=== PATIENT | male | born 1965 | race Two or more races ===

== ENCOUNTER 2016-08-28 21:21 | Emergency (ER) | payer BC ==
[~2016-08-28] VITALS: Wt 96.0 kg
[~2016-08-28 21:21] MED LIST: [UNRECOGNIZED DRUG - REMARK]
[2016-08-28] MEDS ORDERED: ONDANSETRON (ODT) 4 MG TAB ODT STA (23:21)
[2016-08-28] MEDS ORDERED: NAPR-260 PO (23:23)
[2016-08-28] MEDS ORDERED: SULF1TAB31 PO (23:23)
[2016-08-28] MEDS ORDERED: HYDR-906 PO (23:23)
[2016-08-28] MEDS ORDERED: MED4DP PO (23:23)
[2016-08-28] MEDS ORDERED: predniSONE 20 MG TAB PO ONE (23:30)
[2016-08-28] MEDS ORDERED: IBUPROFEN 600 MG TAB PO ONE (23:30)
[2016-08-28] MEDS ORDERED: HYDROCODONE/APAP (5/325) TAB PO ONE (23:30)
--- NOTE | 2016-08-29 00:13 | ERD ---
ER Documentation Chief Complaint Date/Time DATE: 08/29/16 TIME: 00:10 Chief Complaint palpable mass on the right side of the jaw HPI This patient is a 51-year-old male with past medical history of sleep apnea and hypertension presenting to the emergency department for left lower jaw pain with facial swelling as well as bilateral ear pain which began 2 days ago. Additionally the patient states he has had mild shortness of breath worse in the evening due to his sleep apnea. The facial pain and swelling symptoms are constant. He reports aching pain. The patient is taken no medication for relief of symptoms. The patient did go to urgent care yesterday for the facial swelling and was prescribed cephalexin which he took yesterday and today. The patient smokes half a pack of cigarettes per day. He denies fevers or other symptoms at this time. ROS All systems reviewed and are negative except as per history of present illness. Medications Home Meds Active Scripts Methylprednisolone* (Medrol* DOSE PACK) 4 Mg/Dose-Pack Tab.ds.pk, 4 MG PO . DIRECTED, #1 PACKET Prov:SVEN TRAMMELL PA-C 08/28/16 Naproxen* (Naprosyn*) 500 Mg Tablet, 500 MG PO BID Y for PAIN AND/OR INFLAMMATION, #20 TAB Prov:SVEN TRAMMELL PA-C 08/28/16 Hydrocodone/Acetaminophen (Branson 5-325 Tablet) 1 Each Tablet, 1 TAB PO Q6H Y for PAIN, #7 TAB Prov:SVEN TRAMMELL PA-C 08/28/16 Sulfamethoxazole/Trimethoprim* (Bactrim Ds* Tablet) 1 Each Tablet, 1 TAB PO BID , #14 TAB Prov:SVEN TRAMMELL PA-C 08/28/16 Reported Medications [bood pressure med] No Conflict Check 12/27/13 Allergies Allergies: Coded Allergies: No Known Drug Allergy (Verified Allergy, Mild, 04/23/14) PMhx/Soc History of Surgery: Yes Hx Neurological Disorder: No Hx Respiratory Disorders: No Hx Psychiatric Problems: No Hx Miscellaneous Medical Probl: No Hx Alcohol Use: Yes (SOCIALLY) Hx Substance Use: No Hx Tobacco Use: No FmHx Noncontributory for chief complaint Physical Exam Vitals Vital Signs Date Time Temp Pulse Resp B/P Pulse Ox O2 Delivery O2 Flow Rate FiO2 08/28/16 21:46 99.9 104 20 157/90 98 Physical Exam Const: The patient is resting comfortably in no acute distress. Head: Atraumatic. The patient has some left sided facial swelling with tenderness to palpation. Eyes: Normal Conjunctiva ENT: Normal External Ears, Nose and Mouth. The patient has poor dental hygiene. There are multiple dental caries present. There is gingivitis present. Neck: Full range of motion..~ No meningismus. Resp: Clear to auscultation bilaterally Cardio: Regular rate and rhythm, no murmurs Abd: Soft, non tender, non distended. Normal bowel sounds Skin: No petechiae or rashes Back: No midline or flank tenderness Ext: No cyanosis, or edema Neur: Awake and alert Psych: Normal Mood and Affect Results 24 hrs Current Medications Medications (Trade) Dose Ordered Sig/Laurence Route PRN Reason Start Time Stop Time Status Last Admin Dose Admin Ibuprofen (Motrin) 600 mg ONCE ONCE PO 08/28/16 23:30 08/28/16 23:31 DC 08/28/16 23:35 Acetaminophen/ Hydrocodone Bitart (Branson (5/325)) 1 tab ONCE ONCE PO 08/28/16 23:30 08/28/16 23:31 DC 08/28/16 23:35 Prednisone (Prednisone) 40 mg ONCE ONCE PO 08/28/16 23:30 08/28/16 23:31 DC 08/28/16 23:36 Ondansetron HCl (Zofran Odt) 4 mg ONCE STAT ODT 08/28/16 23:21 08/28/16 23:22 DC 08/28/16 23:35 Procedures/MDM 51-year-old male presents secondary to complaints of facial pain and swelling. On physical examination the patient's vitals are within normal limits except he has mildly elevated blood pressure. Patient's blood pressure was elevated (>120 /80) but appears stable without evidence of hypertension emergency or urgency. The patient was counseled about the risks of hypertension and urged to pursue outpatient monitoring and therapy within a week with their primary care physician. Examination of the mouth shows multiple dental caries and gingivitis with possible early dental abscess. Patient does have some facial swelling with tenderness palpation of the left lower jaw area. The patient is stable for outpatient management with a prescription for Bactrim and he was advised to continue taking the cephalexin as prescribed by the previous provider. I have low suspicion for deep tissue infection, septicemia, or other emergent conditions. Strict ER return precautions were discussed and the patient demonstrates good understanding. The patient is to have close follow-up with his primary care physician and his dentist. Departure Diagnosis: Primary Impression: Toothache Additional Impressions: Cellulitis Lymphadenitis Jaw pain Condition: Fair Patient Instructions: Cellulitis, Facial, Dental Pain, Lymphedema Additional Instructions: Please make an appointment with your dentist as soon as possible. Please continue taking the cephalexin exactly as prescribed from the previous provider that you saw. Take the Bactrim that you were prescribed at this visit exactly as prescribed. Never drive or operate machinery after taking narcotic pain medication. Follow up with your PCP within the next 1-3 days for a more thorough evaluation and a possible referral to a specialist. Return the the emergency department immediately if symptoms worsen or change. If you have any questions regarding medications, ask your pharmacist or us before you leave. If any adverse reactions, occur while taking your medications, discontinue the treatment and return to the emergency department immediately. If any new or worsening symptoms, uncontrolled fevers, or other unexplained symptoms occur, return to the emergency department immediately. Take your medications as directed, and complete the entire course of treatment. SVEN TRAMMELL PA-C August 29, 2016 00:13
== END 2016-08-28 23:47 | disposition home or self-care (01) ==
LOC: FTE 21:21
DX: K08.89 Other specified disorders of teeth and supporting structures (principal); L03.90 Cellulitis, unspecified; I88.9 Nonspecific lymphadenitis, unspecified; I10 Essential (primary) hypertension; F17.210 Nicotine dependence, cigarettes, uncomplicated
CPT/HCPCS: J7512; Z7610; 99284

== ENCOUNTER 2018-11-24 00:18 | Emergency (ER) | payer BC, OTHER ==
[~2018-11-24] VITALS: Ht 170.2 cm; Wt 97.9 kg
[~2018-11-24 00:18] MED LIST changes: +CEPH-443 PO; +ERYT1OIN6 BOTH EYES; +HYDR-4011 PO; +IBUP800T48 PO; +MED4DP PO; +NAPR-985 PO; +OMEP40CA6 PO; +SULF1TAB31 PO
[2018-11-24 00:23] VITALS: Ht 170.2 cm; Wt 97.9 kg
--- NOTE | 2018-11-24 02:19 | ERD ---
ER Documentation Chief Complaint Chief Complaint states possible insect bite to left leg yesterday, c/o pain/swelling HPI This is a 53-year-old male who presents to emerge department complaining of left foot pain and swelling that started yesterday. Stated that he is not sure if he had a insect bite on this area. Also added that he has bilateral eye redness and yellowish crusty discharge that started yesterday. Denies headache, head injury, loss of consciousness, dizziness, neck pain, neck stiffness, throat pain, difficulty swallowing, difficulty breathing lying flat, shoulder pain, chest pain, back pain, abdominal pain, nausea, vomiting, constipation, diarrhea, urinary symptoms, loss of bowel and bladder control, trauma, injury, falls, difficulty walking due to pain, numbness or tingling sensation, calf pain, recent travel, recent major surgery in the last 3 weeks, calf pain, recent long travel, recent exposure to any illness, recent antibiotic use in the last 3 months, fever, chills, seizures. Past medical history: Denies. Surgical history: Denies. Social: Denies smoking, use of alcoholic beverages, use of illegal drugs. ROS All systems reviewed and are negative except as per history of present illness. Medications Home Meds Active Scripts Omeprazole* (Omeprazole*) 40 Mg Capsule.dr, 40 MG PO DAILY, #30 CAP Prov:MARKUSBETHAZRA F 11/24/18 Ibuprofen* (Motrin*) 800 Mg Tab, 800 MG PO Q8 PRN for PAIN AND OR ELEVATED TEMP, #30 TAB Prov:JORDYNBELLBETHAZRA Slava 11/24/18 Erythromycin Base (Erythromycin) 1 Gm Oint...g., 1 APPLIC BOTH EYES QID for 7 Days Prov:MARKUSBETHAZRA F 11/24/18 Sulfamethoxazole/Trimethoprim* (Bactrim Ds* Tablet) 1 Each Tablet, 1 TAB PO BID for 7 Days, #14 TAB Prov:PASILAZENONBETHAZRA Slava 11/24/18 Cephalexin* (Keflex*) 500 Mg Capsule, 500 MG PO TID for 7 Days, CAP Prov:PASILAZENONBETHAZRA F 11/24/18 Methylprednisolone* (Medrol* DOSE PACK) 4 Mg/Dose-Pack Tab.ds.pk, 4 MG PO . DIRECTED, #1 PACKET Prov:SVEN TRAMMELL PA-C 08/28/16 Naproxen* (Naprosyn*) 500 Mg Tablet, 500 MG PO BID PRN for PAIN AND/OR INFLAMMATION, #20 TAB Prov:SVEN TRAMMELL PA-C 08/28/16 Hydrocodone/Acetaminophen (Calcium 5-325 Tablet) 1 Each Tablet, 1 TAB PO Q6H PRN for PAIN, #7 TAB Prov:SVEN TRAMMELL PA-C 08/28/16 Sulfamethoxazole/Trimethoprim* (Bactrim Ds* Tablet) 1 Each Tablet, 1 TAB PO BID, #14 TAB Prov:SVEN TRAMMELL PA-C 08/28/16 Reported Medications [bood pressure med] No Conflict Check 12/27/13 Allergies Allergies: Coded Allergies: No Known Drug Allergy (Verified Allergy, Mild, 04/23/14) PMhx/Soc Medical and Surgical Hx: pt denies Surgical Hx History of Surgery: Yes Anesthesia Reaction: No Hx Neurological Disorder: No Hx Respiratory Disorders: No Hx Cardiac Disorders: Yes (HTN) Hx Psychiatric Problems: No Hx Miscellaneous Medical Probl: No Hx Alcohol Use: Yes (SOCIALLY) Hx Substance Use: No Hx Tobacco Use: Yes Smoking Status: Current every day smoker Physical Exam Vitals Physical Exam Const: No acute distress Head: Atraumatic Eyes: Normal Conjunctiva. Mild conjunctival injection. Yellowish/greenish crusty discharge to bilateral inner canthus. Good eye movement. ENT: Normal External Ears, Nose and Mouth. Neck: Full range of motion. No meningismus. Resp: Clear to auscultation bilaterally Cardio: Regular rate and rhythm, no murmurs Abd: Soft, non tender, non distended. Normal bowel sounds Skin: No petechiae or rashes Back: No midline or flank tenderness Ext: No cyanosis, or edema. Left foot: Dorsal area has a swelling with redness measuring approximately 1 cm in diameter. Left pedal pulse is within normal limits. Capillary refill to left lower extremity is less than 2 seconds. No neurovascular deficits. Neur: Awake and alert. No neurological deficits. Psych: Normal Mood and Affect Results 24 hrs Current Medications Medications Dose Sig/Laurence Start Time Status Last (Trade) Ordered Route PRN Stop Time Admin Dose Reason Admin 1 applic ONCE ONCE 11/24/18 DC 11/24/18 Erythromycin BOTH EYES 02:30 11/24/18 03:23 02:31 (Erythromycin Oph Oint) 1 tab ONCE ONCE 11/24/18 DC 11/24/18 Acetaminophen PO 02:30 11/24/18 03:23 / 02:31 Hydrocodone Bitart (Calcium ()) Procedures/MDM Diagnostic tests: X-ray of the left foot: 1. Soft tissue swelling without foreign bodies. 2. No acute fractures or dislocations. Treatment: Calcium p.o. Erythromycin ophthalmic ointment. Re-evaluation: No neurovascular deficits. No visual field loss. Good eye movement. No neurological deficits. Differential diagnosis I have low suspicion for open fracture, compartment syndrome, osteomyelitis, orbital cellulitis. Final diagnosis: Conjunctivitis. Cellulitis secondary to insect bite. Prescription: Keflex. Bactrim. Erythromycin ophthalmic ointment. Motrin. Follow-up with PCP in the next 24-48 hours. Follow-up with community organization worker in the next 24 to 48 hours. Come back here in the emergency department for any new symptoms or any worsening symptoms. All questions and concerns were answered. Patient and family members verbalized understanding and agreed with plan of care. Hemodynamically stable on discharge. Departure Diagnosis: Primary Impression: Foot pain Additional Impressions: Conjunctivitis Cellulitis Insect bite, infected Condition: Stable Additional Instructions: Follow-up with PCP in the next 24-48 hours. Follow-up with community organization worker in the next 24 to 48 hours. Come back here in the emergency department for any new symptoms or any worsening symptoms. RONNY APARICIO Nov 24, 2018 02:19
[2018-11-24] MEDS ORDERED: ERYTHROMYCIN 1 GM OPH OINT BOTH EYES ONE (02:30)
[2018-11-24] MEDS ORDERED: HYDROCODONE/APAP (10/325) TAB PO ONE (02:30)
[2018-11-24 03:40] VITALS: BP 137/88; PULSE 87; RESP 18
== END 2018-11-24 03:41 | disposition home or self-care (01) ==
LOC: FTE 00:18
DX: S90.862A Insect bite (nonvenomous), left foot, initial encounter (principal); H10.9 Unspecified conjunctivitis; L03.90 Cellulitis, unspecified; I10 Essential (primary) hypertension; F17.210 Nicotine dependence, cigarettes, uncomplicated; W57.XXXA Bitten or stung by nonvenomous insect and other nonvenomous arthropods, initial encounter; Y92.9 Unspecified place or not applicable
CPT/HCPCS: 73630; Z7502; Z7610